=== PATIENT | male | born 1985 | race Two or more races ===

== ENCOUNTER 2016-05-23 11:42 | Emergency (ER) | payer SELFPAY ==
[2016-05-23] MEDS ORDERED: Ketorolac 30 MG/ML SDV IVPUSH ONE (12:04)
[2016-05-23] MEDS ORDERED: Ondansetron 4 MG/2 ML SDV IVPUSH ONE (12:04)
[2016-05-23] MEDS ORDERED: Sodium Chloride 0.9% 1,000 ML IV ONE (12:04)
[2016-05-23] MEDS ORDERED: diphenhydrAMINE 50 MG/ML SDV IVPUSH ONE (12:05)
--- NOTE | 2016-05-23 12:14 | EDM.PDOC ---
ED HPI GENERAL MEDICAL PROBLEM - General Chief Complaint: Headache Stated Complaint: HEADACHE Time Seen by Provider: 05/23/16 11:59 - History of Present Illness INITIAL COMMENTS - FREE TEXT/NARRATIVE: HISTORY AND PHYSICAL: History of present illness: The patient is a 30-year-old male who presents with 3 days of a frontal headache associated with some nausea and intermittent vomiting but without fever chills runny nose or cough. Patient says he has had 2 days of sore throat and anterior neck pain and has had difficulty swallowing and speaking because the discomfort but he is able to swallow and speak. Patient had his influenza shot this year and says that he does not live here locally and lives in [place]. 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 He feels that he is under a great deal of stress with this particular job and he and his coworkers are planning to leave this evening to drive back to [place] . Patient says the vomiting only started this morning and has not kept water down. He says that after work last night he just wanted to rest but he had a restless night sleeping because of the discomfort. Is no posterior head or neck pain. He has taken extra strength Tylenol one dose only for the discomfort over the last 3 days. The patient has admitted to me that he does not do very well with even minor pain and he wants to feel better so that he get home tonight. He has had no history of falls or trauma and no neurosensory changes in his extremities. Review of systems: As per history of present illness and below otherwise all systems reviewed and negative. Past medical history: As per history of present illness and as reviewed below otherwise noncontributory. Surgical history: As per history of present illness and as reviewed below otherwise noncontributory. Social history: No reported history of drug or alcohol abuse. Family history: As per history of present illness and as reviewed below otherwise noncontributory. Physical exam: General: Well-developed well-nourished male who is nontoxic but looks somewhat uncomfortable in the room and is somewhat fidgety. He has a slightly coarse and nasal sounding voice or my evaluation but is not breathless. Vital signs were reviewed by me. HEENT: Atraumatic, normocephalic,the patient has tenderness to palpation of the frontal and maxillary sinuses pupils reactive, negative for conjunctival pallor or scleral icterus, mucous membranes moist, throat clear of exudates but there is beefy erythema of the posterior oropharynx, uvula is midline, there is some shotty cervical adenopathy anteriorly no posterior adenopathy no nuchal rigidity, neck supple, nontender, trachea midline. Lungs: Clear to auscultation, breath sounds equal bilaterally, chest nontender. Heart: S1S2, regular, negative for clicks, rubs, or JVD. Abdomen: Soft, nondistended, nontender. NABS Genitourinary: Deferred. Rectal: Deferred. Extremities: Atraumatic, negative for cords or calf pain. Neurovascular unremarkable. Neuro: Awake, alert, oriented. Cranial nerves II through XII unremarkable. Cerebellum unremarkable. Motor and sensory unremarkable throughout. Exam nonfocal. Diagnostics: CBC CMP rapid strep CT scan of the head Therapeutics: IV fluids Toradol Zofran and Benadryl 1335: Patient was sleeping when I went to reevaluate him and upon awakening he says the nausea is much improved and he is taking sips of water. He says his headache is improved is not completely gone but it is much better--it is still frontal in location. He is aware of all testing results including the findings of a right maxillary sinusitis which I will treat him with Augmentin. I also gave him Zofran and Ultram Zofran for his headache. I've advised resting as much as possible hydration and follow up with his provider back at home in [place]. I've also advised him on reasons to return to the ER Impression: Headache/pharyngitis/ right maxillary sinusitis Definitive disposition and diagnosis as appropriate pending reevaluation and review of above. head Pain Score (Numeric/FACES): 9 - Related Data Allergies Allergy/AdvReac Type Severity Reaction Status Date / Time No Known Allergies Allergy Verified 05/23/16 11:48 Home Meds: Home Meds Cyclobenzaprine [Flexeril] 0 mg PO DAILY 05/23/16 [History] Ibuprofen 800 mg PO ASDIRECTED 05/23/16 [History] oxyCODONE HCl/Acetaminophen [Percocet 10-325 mg Tablet] 1 tab PO ASDIRECTED 10/31 [History] ED ROS GENERAL - Review of Systems Review Of Systems: ROS reveals no pertinent complaints other than HPI. ED EXAM, GENERAL - Physical Exam Exam: See Below (See dictation) Course - Vital Signs Last Recorded V/S: Last Vital Signs Temp 36.8 C 05/23/16 11:50 Pulse 96 05/23/16 11:50 Resp 20 05/23/16 11:50 BP 136/84 05/23/16 11:50 Pulse Ox 95 05/23/16 11:50 - Orders/Labs/Meds Orders: Active Orders 24 hr Category Date Time Status Head wo Cont [CT] Stat Exams 05/23/16 12:05 Taken CULTURE STREP A CONFIRMATION [RM] Stat Lab 05/23/16 12:10 Results STREP SCRN A RAPID W CULT CONF [RM] Stat Lab 05/23/16 12:10 Results Labs: Laboratory Tests 05/23/16 05/23/16 05/23/16 Range/Units 12:10 12:10 12:10 WBC 13.52 H (4.0-11.0) K/uL RBC 5.65 (4.50-5.90) M/uL Hgb 16.8 (13.0-17.0) g/dL Hct 47.5 (38.0-50.0) % MCV 84.1 (80.0-98.0) fL MCH 29.7 (27.0-32.0) pg MCHC 35.4 (31.0-37.0) g/dL RDW Std Deviation 39.3 (28.0-62.0) fl RDW Coeff of Damir 13 (11.0-15.0) % Plt Count 244 (150-400) K/uL MPV 10.50 (7.40-12.00) fL Neut % (Auto) 84.9 H (48.0-80.0) % Lymph % (Auto) 8.7 L (16.0-40.0) % [place] % (Auto) 6.2 (0.0-15.0) % Eos % (Auto) 0.1 (0.0-7.0) % Baso % (Auto) 0.1 (0.0-1.5) % Neut # (Auto) 11.5 H (1.4-5.7) K/uL Lymph # (Auto) 1.2 (0.6-2.4) K/uL [place] # (Auto) 0.8 (0.0-0.8) K/uL Eos # (Auto) 0.0 (0.0-0.7) K/uL Baso # (Auto) 0.0 (0.0-0.1) K/uL Nucleated RBC % 0.0 /100WBC Nucleated RBCs # 0 K/uL Lactate 1.0 (0.20-2.00) mmol/L Sodium 137 (136-146) mmol/L Potassium 3.9 (3.5-5.1) mmol/L Chloride 104 (98-110) mmol/L Carbon Dioxide 21 (21-31) mmol/L BUN 21 (6.0-23.0) mg/dL Creatinine 0.9 (0.6-1.5) mg/dL Est Cr Clr Drug Dosing TNP Estimated GFR (MDRD) > 60.0 ml/min Glucose 113 H (60-110) mg/dL Calcium 10.0 (8.8-10.8) mg/dL Total Bilirubin 1.1 (0.1-1.5) mg/dL AST 13 (5-40) IU/L ALT 14 (8-54) IU/L Alkaline Phosphatase 76 (40-150) Total Protein 8.1 H (6.0-8.0) g/dL Albumin 4.6 (3.5-5.0) g/dL Globulin 3.5 (2.0-3.5) g/dL Albumin/Globulin Ratio 1.3 (1.3-2.8) Meds: Medications Discontinued Medications Generic Name Dose Route Start Last Admin Trade Name Freq PRN Reason Stop Dose Admin Diphenhydramine HCl 50 mg 05/23/16 12:05 05/23/16 12:13 Benadryl IVPUSH 05/23/16 12:06 50 mg ONETIME ONE Administration Sodium Chloride 1,000 mls @ 999 mls/hr 05/23/16 12:04 05/23/16 12:12 Normal Saline IV 05/23/16 13:04 999 mls/hr STAT ONE Administration Ketorolac Tromethamine 30 mg 05/23/16 12:04 05/23/16 12:12 Toradol IVPUSH 05/23/16 12:05 30 mg ONETIME ONE Administration Ondansetron HCl 4 mg 05/23/16 12:04 05/23/16 12:12 Zofran IVPUSH 05/23/16 12:05 4 mg ONETIME ONE Administration Departure - Departure Time of Disposition: 13:42 Disposition: Home, Self-Care 01 Condition: good Clinical Impression: Sinusitis Headache Qualifiers: Headache type: unspecified Headache chronicity pattern: acute headache Intractability: not intractable Qualified Code(s): R51 - Headache Pharyngitis Qualifiers: Pharyngitis/tonsillitis etiology: unspecified etiology Qualified Code(s): J02.9 - Acute pharyngitis, unspecified Forms: ED Department Discharge Additional Instructions: The following information is given to patients seen in the emergency department who are being discharged to home. This information is to outline your options for follow-up care. We provide all patients seen in our emergency department with a follow-up referral. The need for follow-up, as well as the timing and circumstances, are variable depending upon the specifics of your emergency department visit. If you don't have a primary care physician on staff, we will provide you with a referral. We always advise you to contact your personal physician following an emergency department visit to inform them of the circumstance of the visit and for follow-up with them and/or the need for any referrals to a consulting specialist. The emergency department will also refer you to a specialist when appropriate. This referral assures that you have the opportunity for followup care with a specialist. All of these measure are taken in an effort to provide you with optimal care, which includes your followup. Under all circumstances we always encourage you to contact your private physician who remains a resource for coordinating your care. When calling for followup care, please make the office aware that this follow-up is from your recent emergency room visit. If for any reason you are refused follow-up, please contact the [facility] emergency department at and ask to speak to the emergency department charge nurse. [facility] Primary care- Internal Medicine and Family [address] [id number] Push hydration and use medications as needed and prescribed from [facility] --- Zofran tramadol ibuprofen. Please take the antibiotics were prescribed Augmentin as directed until it is finished. You can also add [id number] Tylenol for pain. Please followup with your provider back at home for one hour prior guide her as it's week for further care and evaluation and return to ER as needed and as discussed - My Orders Last 24 Hours: My Active Orders 05/23/16 12:05 Head wo Cont [CT] Stat 05/23/16 12:10 CULTURE STREP A CONFIRMATION [RM] Stat STREP SCRN A RAPID W CULT CONF [RM] Stat - Assessment/Plan Last 24 Hours: My Active Orders 05/23/16 12:05 Head wo Cont [CT] Stat 05/23/16 12:10 CULTURE STREP A CONFIRMATION [RM] Stat STREP SCRN A RAPID W CULT CONF [RM] Stat
[2016-05-23 12:49] LABS: CHLORIDE,CL 104 mmol/L (98-110); SODIUM,NA 137 mmol/L (136-146)
[2016-05-23 14:03] VITALS: BP 132/70
--- NOTE | 2016-05-24 11:02 | CT ---
EXAM DATE: 05/23/16 PATIENT'S AGE: 30 Patient: AMEE VOGEL Facility: [place], [place] Site . Site : 1985 Study: CT Head [id number] 12:38:33 PM Ordering Physician: Doctor Caraballo Final Report: INDICATION: Headache. Vomiting. Technique: CT head without IV contrast. Findings: Lateral juice mixer view demonstrates plate and screw fixation in the mandible. These abnormalities are not included on the CT images. Small polyp or retention cyst versus nodular loculated fluid in the right inferior maxillary sinus with slight mucosal thickening in the right maxillary sinus. No intracranial hemorrhage, edema, or mass effect. No significant abnormalities intracranially. Remainder negative. Impression: 1. No acute or significant intracranial pathology. 2. Mild inflammatory disease in the right maxillary sinus. Dictated by Hamlet Peres MD @ May 23 2016 12:45PM (Electronic Signature) Report Signed by Proxy and Original Signed Document filed in the Medical Record. FOUZIA
== END 2016-05-23 13:59 | disposition home or self-care (01) ==
LOC: MW.ED 11:42
DX: J32.0 Chronic maxillary sinusitis (principal); R51 Headache; J02.9 Acute pharyngitis, unspecified; Z79.899 Other long term (current) drug therapy
CPT/HCPCS: 70450; 80053; 83605; 85025; 87081; 87880; 96361; 96374; 96375; 99284; J1200; J1885; J2405; J7040